=== PATIENT | female | born 1950 | race Native Hawaiian/Other Pacific Islander ===

== ENCOUNTER 2017-08-28 17:55 | Inpatient (IN) | payer MEDICARE, OTHER ==
[2017-08-28] MEDS ORDERED: ASPIRIN 81 MG PO STA (18:23)
[2017-08-28 18:46] LABS: Basophils % (A) 0 %; Eosinophils # (A) 0.2 k/uL (0-0.7); Eosinophils % (A) 2 %; HCT 46.9 % (34.0-46.0); HGB 14.9 gm/dL (11.4-16.0); Lymphocytes # (A) 3.4 k/uL (1.0-4.8); Lymphocytes % (A) 34 %; MCH 32.7 pg (25.0-35.0); MCHC 31.7 g/dL (31.0-37.0); MCV 103.1 fL (80.0-100.0); Macrocytosis Slight; Mean Platelet Volume 6.8; Monocytes # (A) 0.6 k/uL (0-1.0); Monocytes % (A) 6 %; Neutrophils # (A) 5.5 k/uL (1.3-7.7); Neutrophils % (A) 56 %; Platelet Count 272 k/uL (150-450); RBC 4.55 m/uL (3.80-5.40); RDW 12.3 % (11.5-15.5); WBC 9.8 k/uL (3.8-10.6)
--- NOTE | 2017-08-28 18:48 | ED ---
Chest Pain HPI - General Chief Complaint: Chest Pain Stated Complaint: ELVIA, HEART RACING Time Seen by Provider: 08/28/17 18:17 Source: patient, family, RN notes reviewed Mode of arrival: wheelchair Limitations: language barrier - History of Present Illness Initial Comments: This is a 67-year-old female who is brought in by family hours for evaluation for chest pain and tachycardia. She did have intermittent episodes of tachycardia today it hasn't been normal but hasn't be elevated. Associated difficulty breathing chest tightness is noted. Of note also she is Back from a trip to [place] yesterday. She was seen at [facility] outpatient clinic and evaluated and advised to come to the emergency department if symptoms persist. No fevers chills or nausea no vomiting no sweats. The patient does not speak Slovenian and translation is done through an adult relative. MD Complaint: chest pain, other - Related Data Home Medications Medication Instructions Recorded Confirmed Diclofenac Sodium [Voltaren] 75 mg PO BID 08/28/17 08/28/17 Lisinopril [Prinivil] 20 mg PO DAILY 08/28/17 08/28/17 Allergies Allergy/AdvReac Type Severity Reaction Status Date / Time No Known Allergies Allergy Verified 08/28/17 18:18 Review of Systems ROS Statement: Those systems with pertinent positive or pertinent negative responses have been documented in the HPI. ROS Other: All systems not noted in ROS Statement are negative. EKG Findings - EKG Results: EKG: interpreted by TERRANCE, sinus rhythm (Sinus rhythm rate 67 VT interval 122 QRS duration 80 QT since QTC of 350/369 st-t wave changes) Past Medical History Past Medical History: Hypertension History of Any Multi-Drug Resistant Organisms: None Reported Past Surgical History: Section Smoking Status: Never smoker Past Alcohol Use History: None Reported Past Drug Use History: None Reported General Exam - General Exam Comments Initial Comments: Is a well-developed well-nourished awake alert female Limitations: language barrier General appearance: alert, anxious Head exam: Present: atraumatic, normocephalic, normal inspection Eye exam: Present: normal appearance, PERRL, EOMI. Absent: scleral icterus, conjunctival injection, periorbital swelling ENT exam: Present: normal exam, mucous membranes moist Neck exam: Present: normal inspection. Absent: tenderness, meningismus, lymphadenopathy Respiratory exam: Present: normal lung sounds bilaterally. Absent: respiratory distress, wheezes, rales, rhonchi, stridor Cardiovascular Exam: Present: tachycardia, irregular rhythm, normal heart sounds. Absent: systolic murmur, diastolic murmur, rubs, gallop, clicks GI/Abdominal exam: Present: soft, normal bowel sounds. Absent: distended, tenderness, guarding, rebound, rigid Extremities exam: Present: normal inspection, full ROM, normal capillary refill. Absent: tenderness, pedal edema, joint swelling, calf tenderness Back exam: Present: normal inspection Neurological exam: Present: alert, oriented X3, CN II-XII intact Psychiatric exam: Present: normal affect, normal mood Skin exam: Present: warm, dry, intact, normal color. Absent: rash Course Vital Signs 08/28/17 08/28/17 08/28/17 18:02 18:55 19:22 Temperature 98.3 F Pulse Rate 111 H 138 H 65 Respiratory 20 22 20 Rate Blood Pressure 122/68 135/82 122/86 O2 Sat by Pulse 96 99 97 Oximetry 08/28/17 20:34 Temperature Pulse Rate 89 Respiratory 22 Rate Blood Pressure 106/60 O2 Sat by Pulse 99 Oximetry - Reevaluation(s) Reevaluation #1: 08/28/17 18:47 I did my examination the patient was noted have elevated heart rate on the monitor EKG done at this time showed a rate of 163 QRS duration 74 QT since QTC at 296/487 there does appear to be consistent with A. fib RVR. Reevaluation #2: 08/28/17 21:07 Reevaluation patient reveals she still having episodes of atrial fibrillation. She otherwise feels fairly well per family. Chest Pain MDM - MDM I did discuss findings with the patient's family who did translate for me. The patient will be admitted for evaluation for paroxysmal atrial fibrillation with rapid ventricular response. She is on a Cardizem drip she will be anticoagulated cardiology will be consulted. Disposition Clinical Impression: Rapid atrial fibrillation Disposition: ADMITTED IP TO THIS HOSP Condition: Stable Referrals: Fidencio Luque DO [Primary Care Provider] - 1-2 days
[2017-08-28 18:55] LABS: ALT 25 U/L (9-52); AST 24 U/L (14-36); Albumin 3.9 g/dL (3.5-5.0); Alkaline Phosphatase 113 U/L (38-126); Anion Gap 10 mmol/L; Blood Urea Nitrogen 14 mg/dL (7-17); Calcium 9.9 mg/dL (8.4-10.2); Carbon Dioxide 25 mmol/L (22-30); Chloride 107 mmol/L (98-107); Glucose 127 mg/dL (74-99); Magnesium 2.2 mg/dL (1.6-2.3); Potassium 3.9 mmol/L (3.5-5.1); Sodium 142 mmol/L (137-145); Total Bilirubin 0.2 mg/dL (0.2-1.3); Total Protein 6.8 g/dL (6.3-8.2)
[2017-08-28 18:57] LABS: Creatine Kinase 57 U/L (30-135)
[2017-08-28 18:58] LABS: D-Dimer 0.58 mg/L FEU (<0.60); Partial Thromboplastin Time 23.8 sec (22.0-30.0); Prothrombin Time 9.5 sec (9.0-12.0)
[2017-08-28] MEDS ORDERED: DILTIAZEM 125 MG in SODIUM CHLORIDE 0.9% 100 ML IV ONE (19:00)
[2017-08-28] MEDS ORDERED: DILTIAZEM 5 MG/ML 5 ML VIAL IVP STA (19:03)
[2017-08-28 19:11] LABS: Creatine Kinase MB 0.8 ng/mL (0.0-2.4); Troponin I <0.012 ng/mL (0.000-0.034)
--- NOTE | 2017-08-28 19:22 | XR ---
EXAMINATION TYPE: XR chest 2V DATE OF EXAM: 08/28/2017 COMPARISON: 04/04/2011 HISTORY: Chest pain TECHNIQUE: Frontal and lateral views of the chest are obtained. FINDINGS: There is no heart failure nor confluent pneumonic infiltrate. Heart size is normal. There are no hilar masses. There are chest leads. Bony thorax appears intact. Costophrenic angles are clear . IMPRESSION: No cardiopulmonary disease. No change.
[2017-08-28] MEDS ORDERED: ACETAMINOPHEN TAB 325 MG TAB PO PRN (21:09)
[2017-08-28] MEDS ORDERED: NALOXONE 0.4 MG/ML 1 ML VIAL IV PRN (21:09)
--- NOTE | 2017-08-28 21:09 | ED ---
Medical Decision Making - Lab Data Result diagrams: 08/28/17 18:30 08/28/17 18:30 Lab Results 08/28/17 08/28/17 08/28/17 Range/Units 18:30 18:30 18:30 WBC 9.8 (3.8-10.6) k/uL RBC 4.55 (3.80-5.40) m/uL Hgb 14.9 (11.4-16.0) gm/dL Hct 46.9 H (34.0-46.0) % MCV 103.1 H (80.0-100.0) fL MCH 32.7 (25.0-35.0) pg MCHC 31.7 (31.0-37.0) g/dL RDW 12.3 (11.5-15.5) % Plt Count 272 (150-450) k/uL Neutrophils % 56 % Lymphocytes % 34 % Monocytes % 6 % Eosinophils % 2 % Basophils % 0 % Neutrophils # 5.5 (1.3-7.7) k/uL Lymphocytes # 3.4 (1.0-4.8) k/uL Monocytes # 0.6 (0-1.0) k/uL Eosinophils # 0.2 (0-0.7) k/uL Basophils # 0.0 (0-0.2) k/uL Macrocytosis Slight PT (9.0-12.0) sec INR (<1.2) APTT (22.0-30.0) sec D-Dimer (<0.60) mg/L FEU Sodium 142 (137-145) mmol/L Potassium 3.9 (3.5-5.1) mmol/L Chloride 107 (98-107) mmol/L Carbon Dioxide 25 (22-30) mmol/L Anion Gap 10 mmol/L BUN 14 (7-17) mg/dL Creatinine 0.71 (0.52-1.04) mg/dL Est GFR (MDRD) Af Amer >60 (>60 ml/min/1.73 sqM) Est GFR (MDRD) Non-Af >60 (>60 ml/min/1.73 sqM) Glucose 127 H (74-99) mg/dL Calcium 9.9 (8.4-10.2) mg/dL Magnesium 2.2 (1.6-2.3) mg/dL Total Bilirubin 0.2 (0.2-1.3) mg/dL AST 24 (14-36) U/L ALT 25 (9-52) U/L Alkaline Phosphatase 113 (38-126) U/L Total Creatine Kinase 57 (30-135) U/L CK-MB (CK-2) 0.8 (0.0-2.4) ng/mL CK-MB (CK-2) Rel Index 1.4 Troponin I <0.012 (0.000-0.034) ng/mL NT-Pro-B Natriuret Pep pg/mL Total Protein 6.8 (6.3-8.2) g/dL Albumin 3.9 (3.5-5.0) g/dL 08/28/17 08/28/17 Range/Units 18:30 18:30 WBC (3.8-10.6) k/uL RBC (3.80-5.40) m/uL Hgb (11.4-16.0) gm/dL Hct (34.0-46.0) % MCV (80.0-100.0) fL MCH (25.0-35.0) pg MCHC (31.0-37.0) g/dL RDW (11.5-15.5) % Plt Count (150-450) k/uL Neutrophils % % Lymphocytes % % Monocytes % % Eosinophils % % Basophils % % Neutrophils # (1.3-7.7) k/uL Lymphocytes # (1.0-4.8) k/uL Monocytes # (0-1.0) k/uL Eosinophils # (0-0.7) k/uL Basophils # (0-0.2) k/uL Macrocytosis PT 9.5 (9.0-12.0) sec INR 1.0 (<1.2) APTT 23.8 (22.0-30.0) sec D-Dimer 0.58 (<0.60) mg/L FEU Sodium (137-145) mmol/L Potassium (3.5-5.1) mmol/L Chloride (98-107) mmol/L Carbon Dioxide (22-30) mmol/L Anion Gap mmol/L BUN (7-17) mg/dL Creatinine (0.52-1.04) mg/dL Est GFR (MDRD) Af Amer (>60 ml/min/1.73 sqM) Est GFR (MDRD) Non-Af (>60 ml/min/1.73 sqM) Glucose (74-99) mg/dL Calcium (8.4-10.2) mg/dL Magnesium (1.6-2.3) mg/dL Total Bilirubin (0.2-1.3) mg/dL AST (14-36) U/L ALT (9-52) U/L Alkaline Phosphatase (38-126) U/L Total Creatine Kinase (30-135) U/L CK-MB (CK-2) (0.0-2.4) ng/mL CK-MB (CK-2) Rel Index Troponin I (0.000-0.034) ng/mL NT-Pro-B Natriuret Pep 70 pg/mL Total Protein (6.3-8.2) g/dL Albumin (3.5-5.0) g/dL Critical Care Time Critical Care Time: Yes Critical Care Time: 37 minutes of critical care time which includes initial presentation with history physical labs x-rays several reevaluation the patient. Discussed with the patient's findings with family members. Discussion with the admitting physician admission orders and documentation of the above. Disposition Clinical Impression: Rapid atrial fibrillation Disposition: ADMITTED IP TO THIS [facility] Condition: Stable Referrals: Fidencio Luque DO [Primary Care Provider] - 1-2 days
[2017-08-28] MEDS ORDERED: HEPARIN SODIUM,PORCINE 5,000 UNIT/ML 1 ML VIAL IV ONE (21:14)
[2017-08-28] MEDS ORDERED: HEPARIN SOD,PORK IN 0.45% NACL 25,000 UNIT in 0.45% NACL 1 500ML.BAG IV SCH (21:15)
[2017-08-28 23:14] VITALS: BMI 28.0
[2017-08-28] MEDS: SODIUM CHLORIDE 0.9% 1,000 ML IV SCH (23:28)
[2017-08-29] MEDS: ETODOLAC 200 MG CAPSULE PO SCH ×3 (07:53→20:12)
[2017-08-29] MEDS: LISINOPRIL 20 MG TAB PO SCH (07:53)
--- NOTE | 2017-08-29 08:28 | P.CRDCN ---
History of Present Illness Consult date: 08/29/17 Requesting physician: Flaquito Gordillo Reason for Consult (text): Arrhythmia Chief complaint: Heart racing and chest discomfort History of present illness: This is a pleasant 67-year-old female who speaks primarily Mongolian, son and [id number] are in the room, able to provide interpretation. She has a history of hypertension, no documented hyperlipidemia or diabetes, she is a nonsmoker, no EtOH, no caffeine intake. She recently flew back from [place], she states that when she landed, she felt pressure and heart racing, she went to a [facility] walk-in clinic, it was documented there that her heart was racing fast, subsequently she was normal sinus rhythm and was discharged. She was instructed that if the symptoms return to go to the emergency room. For this reason she came in to [facility] ER. Her initial EKG on presentation here showed a normal sinus rhythm with no acute changes, subsequent to that patient went into a supraventricular tachycardia, since her admission, she's had several episodes where she goes into SVT and subsequently back to normal sinus rhythm. She is quite symptomatic with this. Chest x-ray did not reveal any active cardiopulmonary disease. Blood pressure 108/60, heart rate currently in the 50s, 98% on 2 L of oxygen. Afebrile. White blood cell count is normal, hemoglobin 14.9, platelet count 272. D-dimer 0.5, sodium 142, potassium 3.9, BUN 14, creatinine 0.7. Troponins 0.012, 0.012, 0.020. At the time of my examination this morning, patient again went into SVT and was quite symptomatic feeling her heart racing and feeling chest pressure. During my examination she converted to normal sinus rhythm and is currently symptom free. Past Medical History Past Medical History: Hypertension Additional Past Medical History / Comment(s): pinched nerve in right shoulder History of Any Multi-Drug Resistant Organisms: None Reported Past Surgical History: Section Past Psychological History: No Psychological Hx Reported Smoking Status: Never smoker Past Alcohol Use History: None Reported Past Drug Use History: None Reported - Past Family History Father Family Medical History: Cancer Mother Family Medical History: Diabetes Mellitus Medications and Allergies Home Medications Medication Instructions Recorded Confirmed Type Diclofenac Sodium [Voltaren] 75 mg PO BID 02/16/18 02/16/18 History Lisinopril [Prinivil] 20 mg PO DAILY 08/28/17 08/28/17 History Allergies Allergy/AdvReac Type Severity Reaction Status Date / Time No Known Allergies Allergy Verified 08/28/17 18:18 Physical Exam Vitals: Vital Signs Temp Pulse Pulse Resp BP BP Pulse Ox 08/29/17 04:00 56 L 16 107/59 98 08/28/17 23:20 97.9 F 107 H 18 98 08/28/17 23:00 98 F 86 18 102/52 97 08/28/17 22:55 98.3 F 99 22 113/56 99 08/28/17 22:00 107 H 20 101/65 97 08/28/17 20:34 89 22 106/60 99 08/28/17 19:22 65 20 122/86 97 08/28/17 18:55 138 H 22 135/82 99 08/28/17 18:02 98.3 F 111 H 20 122/68 96 Intake and Output 08/28/17 08/29/17 08/29/17 22:59 06:59 14:59 Intake Total 240 Balance 240 Intake: Oral 240 Other: Voiding Method Toilet # Voids 0 Weight 66.678 kg 65.2 kg PHYSICAL EXAMINATION: HEENT: [Head is atraumatic, normocephalic. Pupils equal, round. Neck is supple. There is no elevated jugular venous pressure.] HEART EXAMINATION: [Heart S1, S2 normal. No murmur or gallop heard.] CHEST EXAMINATION:[ Lungs are clear to auscultation and precussion. No chest wall tenderness is noted on palpation or with deep breathing.] ABDOMEN: [ Soft, nontender. Bowel sounds are heard. No organomegaly noted]. EXTREMITIES:[ 2+ peripheral pulses with no evidence of peripheral edema and no calf tenderness noted]. NEUROLOGIC [patient is awake, alert and oriented -3.] . Results 08/28/17 18:30 08/28/17 18:30 Cardiac Enzymes 08/28/17 08/28/17 08/29/17 Range/Units 18:30 18:30 00:22 AST 24 (14-36) U/L CK-MB (CK-2) 0.8 (0.0-2.4) ng/mL Troponin I <0.012 <0.012 (0.000-0.034) ng/mL 08/29/17 Range/Units 06:31 AST (14-36) U/L CK-MB (CK-2) (0.0-2.4) ng/mL Troponin I 0.020 (0.000-0.034) ng/mL Coagulation 08/28/17 08/29/17 Range/Units 18:30 06:31 PT 9.5 (9.0-12.0) sec APTT 23.8 75.4 H (22.0-30.0) sec CBC 08/28/17 Range/Units 18:30 WBC 9.8 (3.8-10.6) k/uL RBC 4.55 (3.80-5.40) m/uL Hgb 14.9 (11.4-16.0) gm/dL Hct 46.9 H (34.0-46.0) % Plt Count 272 (150-450) k/uL Comprehensive Metabolic Panel 08/28/17 Range/Units 18:30 Sodium 142 (137-145) mmol/L Potassium 3.9 (3.5-5.1) mmol/L Chloride 107 (98-107) mmol/L Carbon Dioxide 25 (22-30) mmol/L BUN 14 (7-17) mg/dL Creatinine 0.71 (0.52-1.04) mg/dL Glucose 127 H (74-99) mg/dL Calcium 9.9 (8.4-10.2) mg/dL AST 24 (14-36) U/L ALT 25 (9-52) U/L Alkaline Phosphatase 113 (38-126) U/L Total Protein 6.8 (6.3-8.2) g/dL Albumin 3.9 (3.5-5.0) g/dL Current Medications Generic Name Dose Route Start Last Admin Trade Name Freq PRN Reason Stop Dose Admin Acetaminophen 650 mg 08/28/17 21:09 Tylenol Tab PO Q6HR PRN Mild Pain or Fever > 100.5 Etodolac 200 mg 08/29/17 09:00 08/29/17 07:53 Lodine PO 200 mg BID LUANN Administration Diltiazem HCl 125 mg/ Sodium 125 mls @ 5 mls/hr 08/28/17 19:00 08/28/17 18:52 Chloride IV 08/29/17 18:59 5 mg/hr .Q24H ONE 5 mls/hr Protocol Administration 5 MG/HR Heparin Sodium/Sodium Chloride 500 mls @ 16 mls/hr 08/28/17 21:15 08/28/17 21 :59 25,000 unit/ Sodium Chloride IV 12 units/kg/hr .Q24H LUANN 16 mls/hr Protocol Administration 12 UNITS/KG/HR Sodium Chloride 1,000 mls @ 20 mls/hr 08/28/17 21:15 08/28/17 23:28 Saline 0.9% IV Not Given .Q24H LUANN Lisinopril 20 mg 08/29/17 09:00 08/29/17 07:53 Zestril PO 20 mg DAILY LUANN Administration Naloxone HCl 0.2 mg 08/28/17 21:09 Narcan IV Q2M PRN Opioid Reversal Intake and Output 08/28/17 08/29/17 08/29/17 22:59 06:59 14:59 Intake Total 240 Balance 240 Intake: Oral 240 Other: Voiding Method Toilet # Voids 0 Weight 66.678 kg 65.2 kg 08/28/17 18:30 08/28/17 18:30 EKG Interpretations (text) Initial EKG shows normal sinus rhythm with no acute changes. Subsequent EKG shows a supraventricular tachycardia with a heart rate in the 160s. Assessment and Plan Plan: Assessment and plan #1 symptoms of chest pressure with associated heart racing, evidence of supraventricular tachycardia on the monitor. D-dimer negative. Troponin 0.012 , 0.012, 0.020. #2 hypertension Plan We will obtain an echocardiogram with Doppler study as well as TSH level. Continue Cardizem drip. Further recommendations to follow DNP note has been reviewed, I agree with a documented findings and plan of care. Patient was seen and examined.
--- NOTE | 2017-08-29 10:38 | P.HPIM ---
History of Present Illness H&P Date: 08/29/17 Chief Complaint: Chest tightness and fluttering This is 67 years old female who presented to the emergency department with chest fluttering and tightness. Patient just returned from her trip from [place] 3 days ago and since arrival she's been having this fluttering and tightness with heart palpitation frequently. Patient was seen at [facility] urgent care/ER where appropriate testing were done and showed normal finding patient was discharged and asked to follow-up with her primary care physician but continued to have the symptoms after going home brought to the emergency department where her heart rate was found to be 160 felt to be atrial fibrillation with rapid ventricular response at the time EKG reflected supraventricular tachycardia patient converted to sinus rhythm and heart rate currently is 60 admitted to the cardiac floor and cardiology consult was obtained. Patient denied any history of fluttering of the chest in the past said that she's been healthy otherwise denied history of tobacco or alcohol or drug abuse. Patient is alert oriented with language barrier have some low was at the bedside who speaks Frisian fluently is the main history provider and was used for translation during this encounter. The patient is alert and oriented 4 in no acute distress denying chest pain, shortness breath, dizziness , lightheadedness, blurry vision, dizziness dizziness, dysuria, weight loss or any constitutional symptoms. Patient stated that when this chest fluttering happened that would be associated with dizziness lightheadedness and feeding of passing out but patient denied any loss of consciousness head trauma or loss of vision. Patient episodes usually last a few minutes and then she'll feel back to normal but those episodes we'll leave her with fatigue and inability to function the way she used to in the past. Patient currently getting back close to her baseline and asking if she can be discharged to follow-up with her primary care physician outpatient Review of Systems All 14 systems reviewed and negative except as above Past Medical History Past Medical History: Hypertension, Osteoarthritis (OA) Additional Past Medical History / Comment(s): pinched nerve in right shoulder History of Any Multi-Drug Resistant Organisms: None Reported Past Surgical History: Section Past Psychological History: No Psychological Hx Reported Smoking Status: Never smoker Past Alcohol Use History: None Reported Past Drug Use History: None Reported - Past Family History Father Family Medical History: Cancer Mother Family Medical History: Diabetes Mellitus Medications and Allergies Home Medications Medication Instructions Recorded Confirmed Type Diclofenac Sodium [Voltaren] 75 mg PO BID 08/28/17 08/28/17 History Lisinopril [Prinivil] 20 mg PO DAILY 08/28/17 08/28/17 History Allergies Allergy/AdvReac Type Severity Reaction Status Date / Time No Known Allergies Allergy Verified 08/28/17 18:18 Physical Exam Vitals: Vital Signs Temp Pulse Pulse Resp BP BP Pulse Ox 08/29/17 08:00 96.0 F L 55 L 18 91/54 95 08/29/17 04:00 56 L 16 107/59 98 08/28/17 23:20 97.9 F 107 H 18 98 08/28/17 23:00 98 F 86 18 102/52 97 08/28/17 22:55 98.3 F 99 22 113/56 99 08/28/17 22:00 107 H 20 101/65 97 08/28/17 20:34 89 22 106/60 99 08/28/17 19:22 65 20 122/86 97 08/28/17 18:55 138 H 22 135/82 99 08/28/17 18:02 98.3 F 111 H 20 122/68 96 Intake and Output 08/28/17 08/29/17 08/29/17 22:59 06:59 14:59 Intake Total 240 120 Balance 240 120 Intake: Oral 240 120 Other: Voiding Method Toilet # Voids 0 Weight 66.678 kg 65.2 kg - Constitutional General appearance: average body habitus, no acute distress - EENT Eyes: PERRLA ENT: normal oropharynx - Neck Neck: normal ROM - Respiratory Respiratory: bilateral: CTA - Cardiovascular Heart sounds: normal: S1, S2 - Gastrointestinal General gastrointestinal: normal bowel sounds, soft - Integumentary Integumentary: normal - Neurologic Neurologic: CNII-XII intact - Musculoskeletal Musculoskeletal: gait normal - Psychiatric Psychiatric: A&O x's 3, appropriate affect, intact judgment & insight Results CBC & Chem 7: 08/28/17 18:30 08/28/17 18:30 Labs: Abnormal Lab Results - Last 24 Hours (Table) 08/28/17 08/28/17 08/29/17 Range/Units 18:30 18:30 06:31 Hct 46.9 H (34.0-46.0) % MCV 103.1 H (80.0-100.0) fL APTT 75.4 H (22.0-30.0) sec Glucose 127 H (74-99) mg/dL Thrombosis Risk Factor Assmnt - DVT/VTE Prophylaxis DVT/VTE Prophylaxis: Mechanical Prophylaxis ordered - Choose All That Apply Any of the Below Risk Factors Present?: No Other Risk Factors: Yes Each Risk Factor Represents 2 Points: Age 61-74 years Thrombosis Risk Factor Assessment Total Risk Factor Score: 2 Thrombosis Risk Factor Assessment Level: Low Risk Assessment and Plan Plan: 1. Dizziness, chest fluttering and tightness. 2. SVT, recurrent. 3. Hypertension. 4. Osteoarthritis. Plan discussed with the patient and her daughter and son-in-law who are at the bedside as we would like to proceed with cardiac monitoring, 2-D echo, close monitoring for her general condition and vital signs and we would like to follow -up with cardiology recommendation regarding electrophysiology study. Patient would benefit from beta april and will titrate dose for better control of her heart rate. Patient's would benefit from follow-up outpatient's with her temperature physiology as well. We'll check on TSH. We'll discuss with cardiology date of discharge planning.
[2017-08-29] MEDS: VERAPAMIL 40 MG TAB PO SCH ×3 (11:44→20:08)
[2017-08-29] MEDS: SODIUM CHLORIDE 0.9% 1,000 ML IV SCH (20:06)
--- NOTE | 2017-08-30 09:10 | P.DS ---
Providers Date of admission: 08/28/17 21:08 Attending physician: Boaz Ying Consults: 08/28/17 21:10 Consult Physician Routine Consulting Provider: Lincoln Lopes Consult Reason/Comments: Rapid atrial fibrillation Do you want consulting provider notified?: Yes [facility] Course: This is 67 years old female who presented to the hospital with chest tightness palpitation and dizziness patient heart rate was found to be 160 but patient had episodes of slowing down to 50s and 40s patient was seen by services rep and I discussed the case with the services rep who felt that the patient could be having tachybradycardia syndrome and needs further follow-up outpatient patient was started on verapamil and her heart rate became under better control patient felt stable from the medical standpoint asked to follow-up with cardiology outpatient and with her primary care physician in 3 days plan discussed with the patient's family who speaks fluent Portuguese and was discharged in stable condition Patient Condition at Discharge: Stable Plan - Discharge Summary Discharge Rx Participant: Yes New Discharge Prescriptions: No Action Lisinopril [Prinivil] 20 mg PO DAILY Diclofenac Sodium [Voltaren] 75 mg PO BID Verapamil [Isoptin] 1 tab PO TID Discharge Medication List Diclofenac Sodium [Voltaren] 75 mg PO BID 08/28/17 [History] Lisinopril [Prinivil] 20 mg PO DAILY 08/28/17 [History] Verapamil [Isoptin] 1 tab PO TID 08/30/17 [History] Follow up Appointment(s)/Referral(s): Fidencio Luque DO [Primary Care Provider] - 1-2 days Discharge Disposition: HOME SELF-CARE
--- NOTE | 2017-08-30 09:22 | ECHOF ---
Referral Reason:arrythmia MEASUREMENTS -------- HEIGHT: 152.4 cm WEIGHT: 64.9 kg BP: 107/59 RVIDd: 3.0 cm (< 3.3) IVSd: 1.1 cm (0.6 - 1.1) LVIDd: 3.9 cm (3.9 - 5.3) LVPWd: 1.1 cm (0.6 - 1.1) IVSs: 1.4 cm LVIDs: 2.9 cm LVPWs: 1.6 cm LA Diam: 3.1 cm (2.7 - 3.8) LAESV Index (A-L): 21.22 ml/m Ao Diam: 3.3 cm (2.0 - 3.7) AV Cusp: 2.2 cm (1.5 - 2.6) MV EXCURSION: 15.184 mm (> 18.000) MV EF SLOPE: 106 mm/s (70 - 150) EPSS: 0.4 cm MV E Oscar: 0.70 m/s MV DecT: 211 ms MV A Oscar: 0.62 m/s MV E/A Ratio: 1.13 AR PHT: 548 ms RAP: 5.00 mmHg RVSP: 23.42 mmHg FINDINGS -------- Sinus rhythm. This was a technically good study. The left ventricular size is normal. There is borderline concentric left ventricular hypertrophy. Overall left ventricular systolic function is normal with, an EF between 55 - 60 %. The right ventricle is normal in size and function. Normal LA size by volume 22+/-6 ml/m2. The right atrium is normal in size. The aortic valve is trileaflet and appears structurally normal. There is mild aortic regurgitation. The mitral valve is normal. Mild tricuspid regurgitation present. Right ventricular systolic pressure is normal at < 35 mmHg. There is no pulmonic regurgitation present. The aortic root size is normal. Normal inferior vena cava with normal inspiratory collapse consistent with estimated right atrial pre ssure of 5 mmHg. There is no pericardial effusion. CONCLUSIONS -------- 1. Sinus rhythm. 2. This was a technically good study. 3. The left ventricular size is normal. 4. There is borderline concentric left ventricular hypertrophy. 5. Overall left ventricular systolic function is normal with, an EF between 55 - 60 %. 6. The right ventricle is normal in size and function. 7. Normal LA size by volume 22+/-6 ml/m2. 8. The right atrium is normal in size. 9. The aortic valve is trileaflet and appears structurally normal. 10. There is mild aortic regurgitation. 11. The mitral valve is normal. 12. Mild tricuspid regurgitation present. 13. Right ventricular systolic pressure is normal at < 35 mmHg. 14. There is no pulmonic regurgitation present. 15. The aortic root size is normal. 16. Normal inferior vena cava with normal inspiratory collapse consistent with estimated right atrial pressure of 5 mmHg. 17. There is no pericardial effusion. FOOTWEAR STITCHER: Charis Martinez RDCS
[2017-08-30] MEDS: ETODOLAC 200 MG CAPSULE PO SCH (11:03)
[2017-08-30] MEDS: VERAPAMIL 40 MG TAB PO SCH ×3 (11:03→20:31)
[2017-08-30] MEDS: SODIUM CHLORIDE 0.9% 1,000 ML IV SCH (11:05)
[2017-08-30 11:44] LABS: Anion Gap 10 mmol/L; Blood Urea Nitrogen 15 mg/dL (7-17); Calcium 9.3 mg/dL (8.4-10.2); Carbon Dioxide 22 mmol/L (22-30); Chloride 109 mmol/L (98-107); Glucose 86 mg/dL (74-99); Potassium 4.3 mmol/L (3.5-5.1); Sodium 141 mmol/L (137-145)
[2017-08-30] MEDS: LISINOPRIL 20 MG TAB PO SCH (11:52)
[2017-08-30 20:36] VITALS: RESP 16
--- NOTE | 2017-08-31 00:12 | PN ---
PROGRESS NOTE This lady has been having short runs of paroxysmal atrial tachycardia. However, through the night with verapamil atrial fibrillation rhythm was better this morning. She still has short runs of PAD. I am going to increase activity. She appears to be dehydrated. We will hydrate her. Echo revealed good systolic function. We will discontinue lisinopril, increase IV fluids, increase activity. Obtain rhythm strips with activity and hopefully home this evening or tomorrow. Verapamil has helped but states she still has some breakthrough episodes. MMODL / IJN: [id number] /
[2017-08-31] MEDS: SODIUM CHLORIDE 0.9% 1,000 ML IV SCH ×3 (05:23→05:35)
[2017-08-31] MEDS: VERAPAMIL 40 MG TAB PO SCH (08:29)
[2017-08-31] MEDS ORDERED: SENNOSIDES-DOCUSATE SODIUM 1 EACH TAB PO STA (09:15)
[2017-08-31 13:11] VITALS: BP 110/64; PULSE 61; TEMP 97
--- NOTE | 2017-08-31 15:34 | PN ---
PROGRESS NOTE This lady has episodes of short runs of PAT. With Verapamil PAT has decreased tremendously. She is having short runs of 5-6 beats. I am going to continue verapamil, add a small dose of Lopressor 12.5 daily. Her blood pressure is good. There were no orthostatic changes. She has been hydrated. Plan is to discharge her on 12.5 mg Lopressor b.i.d., verapamil 40 mg t.i.d., aspirin 81 mg daily. Increase oral fluids. I will see her on the . She will call me sooner if she has a question, concern a problem. MMODL / IJN: [id number] /
[2017-08-31] MEDS ORDERED: METOPROLOL TARTRATE 12.5 MG TAB PO SCH (21:00)
[2017-09-01] MEDS ORDERED: ASPIRIN 81 MG PO SCH (09:00)
== END 2017-08-31 14:55 | disposition home or self-care (01) | DRG 310 ==
LOC: EC 17:55 → 6SEL 21:08
PROVIDERS: ADMIT Internal Medicine; ATTEND Internal Medicine
DX: I47.1 Supraventricular tachycardia (principal); G58.8 Other specified mononeuropathies; I10 Essential (primary) hypertension; M19.90 Unspecified osteoarthritis, unspecified site; R42 Dizziness and giddiness; Z79.899 Other long term (current) drug therapy; Z83.3 Family history of diabetes mellitus; Z80.9 Family history of malignant neoplasm, unspecified
CPT/HCPCS: 36415; 71046; 80048; 80053; 82550; 82553; 83735; 83880; 84443; 84484; 85025; 85379; 85610; 85730; 93005; 93306; 96365; 96366; 96368; 96376; 99291

== ENCOUNTER 2017-09-27 15:33 | Emergency (ER) | payer MEDICARE, OTHER ==
[2017-09-27 15:39] VITALS: BP 122/66; PULSE 63; RESP 18; TEMP 97.6
[2017-09-27] MEDS ORDERED: DIPH,PERTUS(ACELL)TETVAC-LF 0.5 ML VIAL IM ONE (16:00)
--- NOTE | 2017-09-27 16:48 | ED ---
General Adult HPI - General Chief complaint: Wound/Laceration Stated complaint: lac left hand Time Seen by Provider: 09/27/17 15:54 Source: patient, family Mode of arrival: ambulatory Limitations: no limitations, language barrier - History of Present Illness Initial comments: 67 year old female presents to the emergency department for a chief complaint of left hand laceration. Laceration is on the inferior palmar aspect of the left hand. Patient has 2 family members in the room who are translating for her as she is Romansh-speaking. Patient states she cut it on a broken light bulb about an hour ago. She washed it out with water after she realized it was lacerated. Patient denies any numbness or tingling in the digits of the left hand. Patient denies any weakness in the left hand. Patient denies any shortness of breath, chest pain, abdominal pain, nausea or vomiting. No other injuries occurred. Patient states tetanus is probably not up-to-date. - Related Data Home Medications Medication Instructions Recorded Confirmed Diclofenac Sodium [Voltaren] 75 mg PO BID 08/28/17 08/28/17 Verapamil [Isoptin] 1 tab PO TID 08/30/17 08/30/17 Previous Rx's Medication Instructions Recorded Aspirin 81 mg PO DAILY chew 08/31/17 Metoprolol Tartrate [Lopressor] 12.5 mg PO BID #60 tab 08/31/17 Allergies Allergy/AdvReac Type Severity Reaction Status Date / Time No Known Allergies Allergy Verified 09/27/17 15:39 Review of Systems ROS Statement: Those systems with pertinent positive or pertinent negative responses have been documented in the HPI. ROS Other: All systems not noted in ROS Statement are negative. Past Medical History Past Medical History: Hypertension, Osteoarthritis (OA) Additional Past Medical History / Comment(s): pinched nerve in right shoulder History of Any Multi-Drug Resistant Organisms: None Reported Past Surgical History: Section Past Psychological History: No Psychological Hx Reported Smoking Status: Never smoker Past Alcohol Use History: None Reported Past Drug Use History: None Reported - Past Family History Father Family Medical History: Cancer Mother Family Medical History: Diabetes Mellitus General Exam Limitations: no limitations, language barrier General appearance: alert, in no apparent distress Respiratory exam: Present: normal lung sounds bilaterally. Absent: respiratory distress, wheezes, rales, rhonchi, stridor Cardiovascular Exam: Present: regular rate, normal rhythm, normal heart sounds. Absent: systolic murmur, diastolic murmur, rubs, gallop, clicks Extremities exam: Present: full ROM (Full range of motion of hands bilaterally.) , tenderness (Tenderness to the left hand by the laceration site.), normal capillary refill (Refill less than 2 seconds in the upper extremities bilaterally), other (Radial pulse 2+ bilaterally. Patient has full range of motion of the hand and all fingers. Patient has full sensation of all fingers and hand.). Absent: pedal edema, joint swelling Course Vital Signs 09/27/17 15:35 Temperature 97.6 F Pulse Rate 63 Respiratory 18 Rate Blood Pressure 122/66 O2 Sat by Pulse 97 Oximetry Procedures - Procedures Initial comment: 2 cm laceration was cleaned with sterile water. It was then numbed with 3 mL 1 % lidocaine. After numbed, it was inspected for any deeper tissue injuries. Sterile technique was used to clean the area with iodine. Sterile technique was also used to trim excess subcutaneous tissue and apply 5 5-0 Ethilon sutures to the laceration. Excess tissue was trimmed in order to prevent it from protruding from the stitching. Bacitracin was then applied to the laceration. Medical Decision Making - Medical Decision Making 67-year-old female presents to the emergency department for a chief complaint of left hand laceration. It is a shallow laceration to the inferior palmar aspect of the left hand. Patient is completely able to move all fingers and wrist. Radial pulses 2+ the left hand. Capillary refills less than 2 seconds in the left hand. Patient was given a tetanus shot. Wound was inspected for any deep structure injuries. 5 sutures were applied to the laceration. Patient was told to follow-up in 10-14 days to have the sutures removed. She can come back to the ER to have this done. Patient was told to take Tylenol for pain relief. She is to come back to the emergency Department if she notices any signs of infection. Otherwise, follow up with primary care provider in one to 2 days. Disposition Clinical Impression: Laceration Disposition: HOME SELF-CARE Condition: Good Instructions: Laceration (ED) Additional Instructions: Please return to the emergency department in 10-14 days to have sutures removed. If you notice any signs of infection please return to the emergency department or follow-up with primary care provider. Please follow-up with primary care provider in one to 2 days. Referrals: Fidencio Luque DO [Primary Care Provider] - 1-2 days Time of Disposition: 16:56
== END 2017-09-27 17:03 | disposition home or self-care (01) ==
LOC: EC 15:33
DX: S61.412A Laceration without foreign body of left hand, initial encounter (principal); M19.90 Unspecified osteoarthritis, unspecified site; I10 Essential (primary) hypertension; Z79.1 Long term (current) use of non-steroidal anti-inflammatories (NSAID); Z79.899 Other long term (current) drug therapy; Z23 Encounter for immunization; W45.8XXA Other foreign body or object entering through skin, initial encounter
CPT/HCPCS: 12001; 90471; 90715; 99282

== ENCOUNTER → 2017-10-14 | Outpatient (CLI) | payer MEDICARE, OTHER ==
[2017-10-14 12:27] LABS: Blood Urea Nitrogen 9 mg/dL (7-17)
--- NOTE | 2017-10-14 14:28 | CT ---
EXAMINATION TYPE: CT abdomen pelvis w con DATE OF EXAM: 10/14/2017 COMPARISON: NONE HISTORY: Generalized abdominal pain CT DLP: 782.70 mGycm Automated exposure control for dose reduction was used. CONTRAST: CT scan of the abdomen pelvis is performed with IV Contrast, patient injected with 100 ml mL of Isovu e 370. FINDINGS- LUNG XIXNO-hnhydyh-mawow thickening is noted posteriorly within the right lung.. LIVER/GB- No gross abnormality is appreciated. PANCREAS- No gross abnormality is seen. SPLEEN- No gross abnormality is seen. ADRENALS- No gross abnormality is seen. KIDNEYS/BLADDER-there is malrotation of the left kidney but no evidence of hydronephrosis. Hypodense lesions involving the right kidney are suggestive of cysts. Measures 10 Hounsfield units. BOWEL- no bowel dilatation. Normal appendix. LYMPH NODES- No greater than 1cm abdominal or pelvic lymph nodes are appreciated. OSSEOUS STRUCTURES- No significant abnormality is seen. OTHER- aorta of normal caliber. Hypertrophic and degenerative change spine. Bladder somewhat low-lyi ng position may represent a degree of cystocele. There is a 1.9 x 1.3 cm mass in the anterior to the aorta just above the level the umbilicus. IMPRESSION- 1. There is a 1.9 x 1.3 cm soft tissue mesenteric mass in the midabdomen. This appears to be encircle d by bowel with no percutaneous access for biopsy. Recommend PET scan. 2. Simple right renal cyst measuring 10 Hounsfield units.
== END | disposition home or self-care (01) ==
LOC: RADCTMAIN 11:41
PROVIDERS: ATTEND Family Medicine
DX: N28.1 Cyst of kidney, acquired (principal); R19.07 Generalized intra-abdominal and pelvic swelling, mass and lump
CPT/HCPCS: 82565; 84520; 74177; 36415; Q9967

== ENCOUNTER → 2017-12-31 | Day surgery (SDC) | payer MEDICARE, OTHER ==
[2017-12-21 15:26] VITALS: BMI 26.9
[~2017-12-31] MED LIST: ALPRAZolam 0.25 MG TAB PO PRN; ALPRAZolam 0.5 MG TAB PO PRN; ASPIRIN 325 MG TAB PO STA; ASPIRIN 81 MG PO SCH; ATORVASTATIN 80 MG TAB PO STA; CYANOCOBALAMIN 5000 MCG PO PRN; HEPARIN SODIUM 1,000 UN/ML (10ML VL) ONE; IOPAMIDOL-370 100ML BTL INJ ONE; LIDOCAINE 2% INJ 20 MG/ML SQ ONE; METOPROLOL TARTRATE 12.5 MG TAB PO SCH; MIDAZOLAM 2 MG/2 ML VIAL IVP ONE; MIDAZOLAM 2 MG/2 ML VIAL ONE; NITROGLYCERIN SL TABS 0.4 MG TAB SUBLINGUAL PRN; RX INFO: IV CONTRAST WAS GIVEN 1 EACH MISC MISCELLANE PRN; SODIUM CHLORIDE 0.9% 1,000 ML IV SCH; SODIUM CHLORIDE 0.9% 1,000 ML in EMPTY BAG 1 BAG IV ONE; VERAPAMIL 2.5 MG/ML 2 ML AMP ONE; VERAPAMIL 40 MG TAB PO SCH; diphenhydrAMINE 50 MG/ML 1 ML VIAL IVP ONE; diphenhydrAMINE 50 MG/ML 1 ML VIAL ONE
[2017-12-31 07:15] VITALS: RESP 18
[2017-12-31] MEDS: VERAPAMIL SYRINGE (5 MG/10 ML) INTRAARTER ONE ×2 (07:48→08:01)
--- NOTE | 2017-12-31 08:43 | CC ---
CARDIAC CATHETERIZATION REPORT DATE OF SERVICE: 12/31/2017 PROCEDURE: Left heart catheterization, coronary angiography. PERFORMED BY: Dr. Terell Arizmendi. Moderate conscious sedation time was 22 minutes. Patient was given Versed and Benadryl and her oxygen saturation, hemodynamics and EKG were monitored closely. CLINICAL INFORMATION: Mrs. Piedad Varela is a 67-year-old lady with a history of paroxysmal supraventricular tachycardia, borderline hypertension with chest discomfort, who had a positive stress test suggestive of reversible defect in the mid anterior wall with preserved systolic function. She was advised coronary angiography after due discussion with the patient and family regarding risks, benefits, and options. PROCEDURE NOTE: Under local anesthesia and strict aseptic precautions, a 6-Dutch introducer was placed in the right radial artery. I used a micropuncture needle technique to get access. An Ultimate 1 catheter was used to perform selective coronary angiography of the left coronary artery. There was a lot of tortuosity, but after some maneuvering, I was able to position the catheter in the left coronary artery. Multiple angiograms were obtained. I then switched over the wire to a 3.5 curve right Colette catheter with this I performed selective coronary angiography of the right coronary artery. The same catheter was used to check LV pressure but LV gram was not performed. The sheath was then taken out and TR band applied as per protocol. The oxygen saturation in the fingers of the right hand was about 93%. The patient tolerated the procedure well without complications. Results were discussed with the patient and family and she will be discharged later on today if she remains stable. CARDIAC CATHETERIZATION FINDINGS: The left ventricle end-diastolic pressure was 8 mmHg without any gradient across aortic valve. CORONARY ANGIOGRAPHY FINDINGS: LEFT MAIN CORONARY ARTERY: A short patent disease-free vessel that bifurcates into LAD and circumflex. LEFT ANTERIOR DESCENDING CORONARY ARTERY: Good caliber vessel gives off a first diagonal then smaller septal branches and a fair-sized second diagonal then runs all the way to the apex supplying a sizable amount of myocardium. There is no significant disease in the entire LAD system which is a good caliber good distribution system. LEFT POSTERIOR CIRCUMFLEX CORONARY ARTERY: Technically nondominant vessel gives off a single obtuse marginal then runs in the AV groove and gives of distal posterolateral branches. There is no significant disease in the circumflex system. RIGHT CORONARY ARTERY: Dominant vessel and has no significant disease. Distally it bifurcates into a larger PLV, smaller PDA, no significant disease. Minor irregularities were noted. LEFT VENTRICULOGRAM: This was not performed. FINAL IMPRESSION: This patient has normal filling pressures, right-dominant system, no significant coronary artery disease. RECOMMENDATION: Results were discussed with the patient and family. No intervention necessary from a coronary artery disease standpoint. Continued medical therapy with risk factor modification is advised and patient will be discharged later on today and I will see her in the office on Thursday at 8:45 am. Discharge instructions regarding the care for the right radial cath site were explained to the patient and this again will be translated in view of her inability to speak in good Bel[place]ian. The patient's family will be translating the information. MMODL / IJN: [id number] /
--- NOTE | 2017-12-31 08:49 | LTR ---
December 31, 2017 Re: Varela Piedad Dear Dr. Luque: Thank you for the opportunity to participate in the care of Mrs. Varela. I am pleased to report to you that she does not have any significant obstructive CAD. She does not require any intervention. Continued medical therapy with the current medical regimen and risk factor modification is advised. Thank you for your referral and please call for questions. With kindest regards. Sincerely yours, MD JOHN Pro / JUANY: [id number] /
[2017-12-31 09:22] VITALS: TEMP 97.8
[2017-12-31 16:04] VITALS: BP 123/65; PULSE 55
== END | disposition home or self-care (01) ==
LOC: CATHCVL 06:37
PROVIDERS: ATTEND Internal Medicine Interventional Cardiology
DX: I20.0 Unstable angina (principal); I47.1 Supraventricular tachycardia; I10 Essential (primary) hypertension; Z82.49 Family history of ischemic heart disease and other diseases of the circulatory system; Z79.82 Long term (current) use of aspirin; Z79.899 Other long term (current) drug therapy
CPT/HCPCS: 93458; C1769; C1894; J2001; J2250; J1200; J1644; Q9967

== ENCOUNTER → 2018-02-16 | Outpatient (CLI) | payer MEDICARE, OTHER ==
[2018-02-16 15:16] LABS: Blood Urea Nitrogen 17 mg/dL (7-17)
--- NOTE | 2018-02-17 00:23 | CT ---
EXAMINATION TYPE: CT abdomen pelvis w con DATE OF EXAM: 02/16/2018 HISTORY: Abdominal mass per order. CT DLP: 1260mGycm Automated Exposure Control for Dose Reduction was Utilized. CONTRAST: CT scan of the abdomen and pelvis is performed with IV Contrast, patient injected with 100 mL of Isov ue 300. COMPARISON: CT abdomen and pelvis October 14, 2012 FINDINGS: LUNG BASES: No significant abnormality is appreciated. LIVER/GB: No significant abnormality is appreciated. PANCREAS: No significant abnormality is seen. SPLEEN: No significant abnormality is seen. ADRENALS: No significant abnormality is seen. KIDNEYS: Simple appearing 1.5 cm cyst upper pole of right kidney series 7 image 25 is redemonstrated. Adjacent subcentimeter lesion laterally is stable and presumed benign. Malrotation or abnormal anter ior axis left kidney is redemonstrated. Stable slightly low lying bladder. BOWEL: The oral contrast reaches level of cecum. There is no suspicious small or large bowel dilatati on. Some redundancy of sigmoid colon is present. UTERUS/ADNEXA: Uterus is surgically absent or markedly atrophic in appearance. LYMPH NODES: No new greater than 1cm abdominal or pelvic lymph nodes are appreciated. Stable 1.9 x 1. 6 cm mesenteric mass in the upper abdomen midline axial image 37. OSSEOUS STRUCTURES: Spine is straightened on sagittal images. Posterior spur disc complex effaces the anterior thecal sac L4-L5 level. There is facet arthropathy lower lumbar levels. There is moderate m ultilevel spurring in the visualized thoracic spine. OTHER: No significant additional abnormality is seen. IMPRESSION: Stable 1.9 x 1.6 cm upper abdominal midline mass probable enlarged lymph node cannot excl ude neoplasm. No new suspicious masses or adenopathy identified. Neoplasm cannot be excluded despite interval stability. Consider PET CT evaluation.
== END ==
LOC: RADCTMAIN 14:36
PROVIDERS: ATTEND Internal Medicine Hematology & Oncology
DX: R19.09 Other intra-abdominal and pelvic swelling, mass and lump (principal)
CPT/HCPCS: 82565; 84520; 74177; 36415; Q9967

== ENCOUNTER → 2018-10-27 | Outpatient (CLI) | payer MEDICARE, OTHER ==
--- NOTE | 2018-10-27 14:22 | MR ---
EXAMINATION TYPE: MR lumbar spine wo con DATE OF EXAM: 10/27/2018 COMPARISON: CT abdomen pelvis February 16, 2018 HISTORY: Spinal stenosis per order. Low back pain for 3 months causing pain into bilateral buttocks p er patient. TECHNIQUE: Multiplanar, multisequence imaging of the lumbar spine is performed without IV contrast. FINDINGS: Sagittal images of the lumbar spine show vertebral body heights to remain satisfactory. The re is loss of normal lumbar lordosis redemonstrated with straightening. Multilevel disc desiccation i s present. There is mild to moderate disc space narrowing L5-S1 level. Mild multilevel anterior spurr ing is redemonstrated. The conus medullaris is normal in position and signal ending mid L1 level. Het erogeneous Modic type II endplate changes L5-S1 level anteriorly are noted with mild to moderate ante rior spurring. Axial images at the T12-L1 level shows mild facet degenerative changes bilaterally with ligamentum fl avum hypertrophy effacing posterior lateral thecal sac axial image 28. There is mild broad disc bulge minimally effacing anterior thecal sac. Axial images at L1-L2 level show lobulated right paracentral/foraminal disc protrusion axial image 24 effacing anterolateral thecal sac and causing asymmetric mild right-sided neural foraminal narrowing . There is mild facet degenerative changes and ligament flavum hypertrophy effacing posterior lateral thecal sac. Axial images at the L2-L3 level show moderate facet degenerative changes and ligament flavum hypertro phy effacing posterior lateral thecal sac. There is mild to moderate broad-based posterior disc protr usion effacing anterior thecal sac on axial image 18. Bilateral neural foramina are patent. Axial images at the L3-L4 level show mild/moderate facet degenerative changes and ligament flavum hyp ertrophy effacing posterior lateral thecal sac on axial image 13. Bilateral neural foramina are paten t. Axial images at the L4-L5 levels show broad disc bulge with right paracentral disc protrusion compone nt. There is moderate facet degenerative changes bilaterally. There is mild bilateral neural foramina l narrowing noted. Axial images at the L5-S1 level show mild facet degenerative changes bilaterally. There is moderate b road disc bulge but spinal canal is preserved. There is mild right and more moderate left-sided neura l foraminal narrowing at this level identified. No suspicious incidental retroperitoneal findings are seen. IMPRESSION: Loss of normal lumbar lordosis with multilevel degenerative changes, largest disc herniat ions are L1-L2 and L4-L5 levels. Further details as discussed above.
== END ==
LOC: RADMRIMAIN 13:28
PROVIDERS: ATTEND Family Medicine
DX: M48.07 Spinal stenosis, lumbosacral region (principal); M51.27 Other intervertebral disc displacement, lumbosacral region; M47.817 Spondylosis without myelopathy or radiculopathy, lumbosacral region; M40.46 Postural lordosis, lumbar region
CPT/HCPCS: 72148

== ENCOUNTER → 2019-01-31 | Outpatient (CLI) | payer MEDICARE, OTHER ==
--- NOTE | 2019-02-01 09:26 | BD ---
EXAMINATION TYPE: Axial Bone Density DATE OF EXAM: 01/31/2019 COMPARISON: NONE CLINICAL HISTORY: Height: 57.75 IN Weight: 152 LBS FRAX RISK QUESTIONS: 3. Menopause before 45: YES PARTIAL HYST AGE 35 Rheumatoid Arthritis: YES PER PT RISK FACTORS HISTORY OF: Postmenopausal woman: AGE 36 PARTIAL HYST. MEDICATIONS: Additional Medications: BLOOD PRESSURE MEDS, HEART MEDS EXAM MEASUREMENTS: Bone mineral densitometry was performed using the Raiing System. Bone mineral density as measured about the Lumbar spine is: ----- L1-L4(G/cm2): 1.250 T Score Values are as follows: ----- L2: -0.9 ----- L3: 1.9 ----- L4: 0.8 ----- L1-L4: 0.6 Bone mineral density BASELINE Bone mineral density about the R hip (g/cm2): 0.958 Bone mineral density about the L hip (g/cm2): 1.083 T Score values are as follows: -----R Neck: -0.6 -----L Neck: 0.3 -----R Total: 0.5 -----L Total: 1.3 Bone mineral density BASELINE IMPRESSION: No evidence for osteoporosis or osteopenia NOTE: T-SCORE=SD OF THE YOUNG ADULT MEAN.
--- NOTE | 2019-02-02 09:25 | MM ---
Reason for exam: screening (asymptomatic). Last mammogram was performed 5 years and 4 months ago. History: Patient is postmenopausal. Excisional biopsy of the right breast, 1990. Physical Findings: A clinical breast exam by your physician is recommended on an annual basis and results should be correlated with mammographic findings. MG Screening Mammo w CAD Bilateral CC and MLO view(s) were taken. Prior study comparison: September 19, 2013, bilateral digital screening mammo w/CAD. September 13, 2012, bilateral digital screening mammo w/CAD. There are scattered fibroglandular densities. No significant changes when compared with prior studies. ASSESSMENT: Negative, BI-RAD 1 RECOMMENDATION: Routine screening mammogram of both breasts in 1 year.
== END | disposition home or self-care (01) ==
LOC: RADMAMWWP 12:58
PROVIDERS: ATTEND Family Medicine
DX: Z12.31 Encounter for screening mammogram for malignant neoplasm of breast (principal); M81.0 Age-related osteoporosis without current pathological fracture
CPT/HCPCS: 77067; 77080

== ENCOUNTER → 2019-09-17 | Outpatient (CLI) | payer MEDICARE, OTHER ==
[2019-09-17 16:43] LABS: Chol/HDL Ratio 2.11; LDL Cholesterol,Calculated 63.6 mg/dL (0.0-131.0); VLDL Calculation 16.4 mg/dL (5.00-40.00)
== END | disposition home or self-care (01) ==
LOC: LABWHC1 09:44
PROVIDERS: ATTEND Nurse Practitioner
DX: E78.2 Mixed hyperlipidemia (principal)
CPT/HCPCS: 36415; 80061; 84450; 84460

== ENCOUNTER → 2020-04-13 | Outpatient (CLI) | payer MEDICARE, OTHER ==
--- NOTE | 2020-04-16 09:46 | MM ---
Reason for exam: screening (asymptomatic). Last mammogram was performed 1 year and 2 months ago. History: Patient is postmenopausal. Excisional biopsy of the right breast, 1990. Physical Findings: A clinical breast exam by your physician is recommended on an annual basis and results should be correlated with mammographic findings. MG 3D Screening Mammo W/Cad Bilateral CC and MLO view(s) were taken. Prior study comparison: January 31, 2019, bilateral MG screening mammo w CAD. September 19, 2013, bilateral digital screening mammo w/CAD. The breast tissue is heterogeneously dense. This may lower the sensitivity of mammography. There is no discrete abnormality. No significant changes when compared with prior studies. ASSESSMENT: Negative, BI-RAD 1 RECOMMENDATION: Routine screening mammogram of both breasts in 1 year.
== END | disposition home or self-care (01) ==
LOC: RADMAMWWP 14:52
PROVIDERS: ATTEND Family Medicine
DX: Z12.31 Encounter for screening mammogram for malignant neoplasm of breast (principal)
CPT/HCPCS: 77063; 77067